=== PATIENT | female | born 1955 | race Hispanic/Latino ===

== ENCOUNTER 2021-02-11 06:12 | Day surgery (SDC) | payer OTHER ==
[2021-02-05 11:00] LABS: Urine Appearance CLEAR (Clear); Urine Bilirubin NEGATIVE (Negataive); Urine Blood NEGATIVE (Negative); Urine Color YELLOW (Yellow); Urine Glucose NEGATIVE (Negative); Urine Protein NEGATIVE (Negative); Urine Urobilinogen 0.2 mg/dL (0.2-1.0); Urine pH 6.5 (5.0-7.0)
[2021-02-05 11:03] LABS: Absolute Lymphocytes (CBC) 1.7 K/uL (0.7-4.9); Basophils % 1.1 % (0-1.3); Lymphocytes % 34.3 % (15.3-44.8); MPV 8.4 fL (7.6-11.3); RBC Red Blood Cell Count 4.46 M/uL (3.86-4.86)
[2021-02-05 11:04] LABS: Urine Microscopic Reflex ORDER UMIC
[2021-02-05 11:17] LABS: Urine Bacteria <20 /HPF (<20); Urine RBC <5 /HPF (NONE SEEN)
[2021-02-05 11:19] LABS: BUN Blood Urea Nitrogen 20 mg/dL (7-18); Bicarbonate 30 mmol/L (21-32); Glucose Level 89 mg/dL (74-106); Sodium Level 140 mmol/L (136-145)
[2021-02-05 11:26] LABS: Protime INR 0.97
[2021-02-11] MEDS ORDERED: Ringers Lactate 1,000 ML IV ONE ×2 (07:01→07:50)
[2021-02-11] MEDS ORDERED: SCOPOLAMINE HYDROBROMIDE PATCH TD ONE (07:01)
[2021-02-11] MEDS ORDERED: CEFAZOLIN/SWI 2gm 2 GM/20 ML SYR ONE (07:02)
[2021-02-11] MEDS ORDERED: FENTANYL CITR 100 MCG/2 ML ONE (07:29)
[2021-02-11] MEDS ORDERED: LIDOCAINE 2% MPF 5 ML VIAL ONE (07:30)
[2021-02-11] MEDS ORDERED: ROCURONIUM 50 MG/5 ML VIAL IV ONE (07:30)
[2021-02-11] MEDS ORDERED: KETOROLAC 30 MG/ML INJ ONE (07:30)
[2021-02-11] MEDS ORDERED: MIDAZOLAM HCL 2 MG/2 ML INJ ONE (07:30)
[2021-02-11] MEDS ORDERED: propofoL 200 MG/20 ML VIAL IV ONE (07:30)
[2021-02-11] MEDS ORDERED: dexAMETHasone 10 MG/ML VIAL ONE (07:30)
[2021-02-11] MEDS ORDERED: ONDANSETRON 4 MG/2 ML VIAL ONE ×2 (07:30→14:24)
[2021-02-11] MEDS ORDERED: BUPIVACAINE 0.25% PF 30 ML VIAL ONE (07:48)
[2021-02-11] MEDS ORDERED: NA CHLORIDE 0.9% 100 ML IV ONE (07:48)
[2021-02-11] MEDS ORDERED: CEFAZOLIN/SWI 1gm 1 GM/10 ML SYR ONE (07:49)
[2021-02-11] MEDS ORDERED: NS 0.9% VIAL 10 ML ONE (09:20)
[2021-02-11] MEDS ORDERED: VECURONIUM 10 MG/VIAL IV ONE (09:20)
[2021-02-11] MEDS: VASOPRESSIN 20 UNIT/ML VIAL ONE ×2 (10:54→12:05)
[2021-02-11] MEDS ORDERED: NS 0.9% VIAL 20 ML ONE (12:41)
[2021-02-11] MEDS ORDERED: CEFAZOLIN SODIUM 1 GM/VIAL ONE (12:41)
[2021-02-11] MEDS ORDERED: NEOSTIGMINE 1 MG/ML -5 ML ONE (13:44)
[2021-02-11] MEDS ORDERED: GLYCOPYRROLATE 0.2 MG/ML SYR ONE (13:44)
[2021-02-11] MEDS ORDERED: ONDANSETRON 4 MG/2 ML VIAL IV PRN (13:57)
[2021-02-11] MEDS ORDERED: PROMETHAZINE INJ 25 MG/ML AMP IV PRN (13:57)
[2021-02-11] MEDS ORDERED: ACETAMINOPHEN 500 MG TAB PO PRN (13:57)
--- NOTE | 2021-02-11 14:10 | P.BOP ---
Preoperative diagnosis: uterovaginal prolapse stage 3, HAYLEE Postoperative diagnosis: same, scoliosis Primary procedure: TLH BSO SCP Secondary procedure: Urethral bulking cystoscopy Branch Service Associate: Funmilayo Oconnor Estimated blood loss: <50 Specimen: uterus tubes and ovaries Findings: 0/+20/4/mod/7/-2/-3/-3, sacral fixation with goretex sutures x2 Anesthesia: General Complications: None Drain(s): Urinary catheter Implants: Upsylon y mesh Transferred to: Recovery Room Condition: Good
[2021-02-11] MEDS ORDERED: HYDROMORPHONE HCL 1 MG/ML INJ ONE (14:12)
[2021-02-11] MEDS ORDERED: PROMETHAZINE INJ 25 MG/ML AMP ONE (14:12)
[2021-02-11] MEDS ORDERED: MORPHINE 4 MG/ML SYR IV PRN (14:29)
[2021-02-11] MEDS ORDERED: IBUPROFEN 600 MG TAB PO PRN (14:31)
[2021-02-11 15:20] VITALS: BMI 17.3
[2021-02-11] MEDS ORDERED: BIMATOPROST OPHTH DROPS/2.5 ML BTL OPTH SCH (21:00)
[2021-02-11] MEDS: Ringers Lactate 1,000 ML IV SCH (22:00)
[2021-02-12] MEDS: Ringers Lactate 1,000 ML IV SCH (06:00)
[2021-02-12 06:01] LABS: Absolute Lymphocytes (CBC) 2.1 K/uL (0.7-4.9); Basophils % 0.5 % (0-1.3); Hematocrit 34.4 % (36.0-45.0); Lymphocytes % 18.1 % (15.3-44.8); MPV 8.5 fL (7.6-11.3); RBC Red Blood Cell Count 3.73 M/uL (3.86-4.86)
[2021-02-12 07:42] VITALS: TEMP 98
[2021-02-12 14:51] VITALS: BP 118/51; O2SAT 98
--- NOTE | 2021-02-13 22:25 | OP ---
Date of Procedure: 02/11/2021 Surgeon: Marianna Carroll MD Director Cardiology: Funmilayo Oconnor. Preoperative Diagnoses: Uterovaginal prolapse stage III, stress urinary incontinence, and scoliosis. Postoperative Diagnoses: Uterovaginal prolapse stage III, stress urinary incontinence, and scoliosis . Procedures Performed: Total laparoscopic hysterectomy, bilateral salpingo-oophorectomy, sacrocolpope xy with Upsylon Y-mesh and urethral bulking with cystoscopy, this was using Bulkamid. Estimated Blood Loss: 50. Specimens: Uterus, tubes, and ovaries. Anesthesia: General endotracheal. Complications: None. Drains: Urinary catheter. Implants: Upsylon Y-mesh. Condition: Good. Findings: 0, +2, 0, 4 moderate, 7, -2, -3, -3. Sacral fixation with Lawley-Obi sutures was performed x2. The ProTack would not deploy in a perpendicular fashion to the curvature of the spine. Indications: The patient is a 65-year-old female, who presented with significant complaints of vagin al bulging and prolapse, referred from Dr. Brooks for pelvic floor dysfunction, urinary frequency, ur gency, incontinence in the past. Occult HAYLEE was seen. Sexually active until 7 years ago. for 2 years. Pelvic cramps and pressure were seen. Since last summer, it has been vagina l bulge. It seems to be getting worse over time carrying her grandchildren. On office evaluation, her POP-Q was 0, 0, -1, 4, 7, -2, -3, -3. Pelvic floor muscle wasting was note d as well as she was unable to do a good Kegel's exercise. She was started on treatment for local va ginal estrogen therapy. Urodynamics, ultrasound, and cystoscopy were all performed. After laying do wn all the options including pessary use, vaginal prolapse repair, sacral colpopexy with anterior api keke mesh suspension or biologic graft were all discussed with the patient, then the patient was very clear about her desires to get this surgically fixed, declined pessary, counseled for laparoscopic hy sterectomy, bilateral salpingo-oophorectomy, sacrocolpopexy, and urethral bulking. The patient was a lso counseled that if the curvature of her spine due to her scoliosis affects the way that I could do surgery or if it is not feasible and are safe to fix the mesh to the anterior longitudinal ligament, then I would do a biologic repair, and chance to the uterine preservation would be done, and was agr eeable and consented. Description Of Procedure: She was given Ancef preop, taken back to OR, placed in a supine fashion on the operating table. General anesthesia was given. Placed in a dorsal lithotomy position. She was carefully placed making sure that her back is not too strained during the process. Legs placed in stirrups. Abdomen, vulva, vagina, and perineum were prepped and draped in a sterile f ashion. POP-Q was as dictated in the findings for this patient and the significant uterine prolapse was much more evident and the bladder prolapse was evident at the time of exam under anesthesia. The sacral promontory was examined and it was deemed to be feasible to be done as I would be suturing in front of S1. A 10 suprapubic and two 5 left and right lower quadrant ports were placed. The bowel was retracted u sing a 3-0 Monocryl suture, pulled out through the left upper quadrant using this as a retractor for the bowel. Then, hysterectomy was started. The infundibulopelvic ligament, meso-ovarian, and mesosa lpinx were all taken down. Broad ligament was taken down and the broad ligament dissected to the jena rine vessels. The bladder flap was raised anteriorly and posteriorly as well came onto the opposite side and similar dissection was performed on the ovary and tube, all removed and then broad ligament was taken down. The broad ligament was opened up and anteriorly the vaginal flap was created keeping the bladder away . Anterior wall of the vaginal canal was opened up. Then, vessels were taken down on both sides. C ircumferential colpotomy with a monopolar hook blade. The specimen pulled out through the vagina. 2 -0 V-Loc suture was taken after suction irrigation and this was used to close from right to the left vaginal epithelium, subepithelium, and some connective tissue. The second layer was similar from lef t to right with the same suture and pulled out after taking 2 back stitches to prevent unwinding. Al l V-Loc sutures were handled in the same way. Once the specimen was pulled out through the vagina, the above process was done. The anterior vaginal wall was dissected picking the bladder up with forceps with a [place] _ underneath carefully going at the 2/3 and 1/3 junction of the bladder to the anterior vaginal wall. Dissection was performed keeping the vaginal vasculature intact all the way down to 4.5 cm, which i s in a 7 cm vagina 2.5 cm, would be at least above the level of the trigone and so dissection was sto pped here. Laterally, dissection was carried being careful and mindful that I did not get the ureter s and the anterior vaginal space was well retracted, then went to the posterior part. Here, the sharon toneal incision was made and it was pretty close to the rectal wall, so had to come up more proximall y to make this incision and once the peritoneal incision was made and the posterior vaginal wall was dissected, then the wall was well identified and staying on the wall 1/3 and 2/3 closer to the wall t curry the rectum. The rectovaginal space was dissected all the way to the rectal reflection. There wa s about 7 cm of the vagina here, so that correlates with her posterior vaginal length. Then, attenti on was directed to the sacral dissection. The peritoneum was opened up in front of the sacral promon tory. All the dissection was performed to the anterior longitudinal ligament. Then, the presacral n erves were preserved and peritoneal dissection was performed all the way down to the level of the pos terior dissection on the posterior vaginal wall, staying away from the ureter vessels on the right an d sigmoid colon on the left. Once this incision was opened up and all the nerves were preserved, the n opened the mesh, placed 2-0 V-Loc suture in the center of the distal posterior limb of the mesh in the center and this suture was placed through the vaginal connective tissue distally. [id number] t was placed and then the suture was cut. Two 2-0 Prolene sutures were placed, 1 on each side of the distal part of the posterior arm to hold the distal most part close to the vagina. These 2-0 Prolen e sutures were placed as a [id number] and then passed through the mesh and then tied down. Then two 2-0 V-Lock sutures were placed in the proximal wall of the vagina posteriorly to hold the graft in place, 1 on each side. The graft was taken and tacked to the sacral promontory to protect and pin s were placed, but these were not perpendicular and flat on the anterior longitudinal ligament. So, I deemed that this was not a good process to hold the mesh in place, so Lawley-Obi sutures were taken o n a CV2 needle and 2 sutures were placed in a vertical midline through the anterior longitudinal liga ment making sure it did not go through the periosteum. Once these sutures were placed, 1 of the [id number] [id number] was simple suture. They were tied with intracorporeal knot-tying. Once this was done, t he graft seemed well suspended. The manipulator was pulled out and adjusted. Then, anterior fixatio n was done with a central 2-0 V-Loc and two sutures of 2-0 Prolene to the anterior vaginal wall pushi ng the bladder away and being careful not to get bladder or the muscle fibers through this. Once thi s was done, then 2-0 V-Loc was used to hold the anterior vaginal wall in place without moving, then 2 -0 V-Loc was used to close the peritoneum starting from the top as a wire retroperitonealizing the en tire mesh with no evidence of any injury to the ureters or the vessels. Thorough irrigation suction was performed. All the trocars removed under direct vision. Retraction of the bowel was taken out a s well, completely hemostatic. Trocars removed under direct vision, injected with Marcaine in the fa scia and skin. Gas was desufflated through umbilicus and fascia and skin were injected as well, and the fascia incision closed with 0 Vicryl tag sutures tied to each other. Suprapubic fascial incision closed with simple 0 Vicryl, 4-0 Vicryl interrupted for all skin incisions. Urethral bulking was the next procedure. A 70 degree lens, 17-Estonian sheath, and normal saline were used for cystoscopy and there were normal jets of urine from both ureteric orifices. No evidence of any trauma or foreign body in the bladder. The bladder was fully drained. Using the sheath, camera was removed. Then, pediatric cystoscope was taken. Saline distention Bulkamid injection was open. A total of 2 syringes were used. Once the pediatric cystoscope was introduced into the bladder cavit y, passed the internal meatus. The needle was passed through to the 2 cm steve. Then, the entire sco pe and needle were pulled back to the level of the area of injection. Then, the needle was pulled ou t and staying in the submucosal plane. Cushions were created in [address] at 3 to 4 o'clock , 2 o'clock, 11 o'clock, 7 o'clock, then between 8 and 9 o'clock. 1.8 mL of the Bulkamid was used to create these cushions. There was excellent apposition of the internal meatus. The bladder was gent ly drained and the procedure was completed. There was very minimal bleeding. The patient tolerated the procedure well. She had a 12-E[place] in place, so that she was able to void overnight givin g her bladder rest and a voiding trial in the morning. Instrument, needle, and sponge counts were co rrect at the end of the case. The vaginal packing was placed. The patient was recovered from anesth esia and taken to PACU in stable condition. TED/KYLEIGH Voice ID: [id number] Report ID: [id number]
== END 2021-02-12 14:30 | disposition home or self-care (01) ==
LOC: OR 06:12 → 2ND-WC 14:12 → OR 02-12 14:30
PROVIDERS: ATTEND Obstetrics & Gynecology
PROC: 0UT24ZZ Resection of Bilateral Ovaries, Percutaneous Endoscopic Approach (ICD-10-PCS; 2021-02-11)
PROC: 0UT74ZZ Resection of Bilateral Fallopian Tubes, Percutaneous Endoscopic Approach (ICD-10-PCS; 2021-02-11)
PROC: 0USG7ZZ Reposition Vagina, Via Natural or Artificial Opening (ICD-10-PCS; 2021-02-11)
PROC: 0TVD8ZZ Restriction of Urethra, Via Natural or Artificial Opening Endoscopic (ICD-10-PCS; 2021-02-11)
PROC: 0UT94ZZ Resection of Uterus, Percutaneous Endoscopic Approach (ICD-10-PCS; principal; 2021-02-11 07:30)
DX: D25.9 Leiomyoma of uterus, unspecified (principal); N72 Inflammatory disease of cervix uteri; N81.2 Incomplete uterovaginal prolapse; N81.84 Pelvic muscle wasting; N39.3 Stress incontinence (female) (male); R39.14 Feeling of incomplete bladder emptying; N95.2 Postmenopausal atrophic vaginitis; M41.9 Scoliosis, unspecified; Z20.822 Contact with and (suspected) exposure to COVID-19
CPT/HCPCS: 87088; 85025 ×2; 87086; 80048; 36415 ×2; 86900; 86850; 85610; 86901; 88305; 85730; 58571; 57282; 51715; U0002; J2704; J2550; J2250; J3010; J1100; J1170; J2710; J0690 ×3; J7120 ×5; J2405 ×2; 81003; 81015; 88307; L8606